=== PATIENT | male | born 1990 | race Caucasian/White ===

== ENCOUNTER → 2017-02-12 | Outpatient (CLI) | payer BC ==
[2015-11-07 19:19] VITALS: BP 152/84
--- NOTE | 2017-02-12 11:13 | CT ---
CT abdomen and pelvis with contrast Indication: Right lower quadrant pain, fever Comparison: None Technique: CT images of the abdomen and pelvis were obtained after IV and oral contrast administratio n (100 mL Omnipaque). Findings: No acute skeletal abnormality. The lung bases are clear. The liver, gallbladder, spleen, stomach, duodenum, pancreas, adrenals, and kidneys demonstrate no sig nificant abnormality. Small renal cysts are noted. No bowel thickening or dilatation is observed. The re is no obstruction of the oral contrast, which is present to the level of the rectum. The appendix appears normal, best seen on coronal images 27-29. The urinary bladder, prostate, and rectum are unre markable. No free fluid or adenopathy identified. Impression: No etiology for patient's symptoms identified. Specifically, the appendix appears normal. Reported By:
== END ==
LOC: RAD 09:31
PROVIDERS: ATTEND Internal Medicine
DX: R10.31 Right lower quadrant pain (principal)
CPT/HCPCS: 74177; A4222

== ENCOUNTER → 2017-04-11 | Outpatient (CLI) | payer BC ==
[2015-11-07 19:19] VITALS: BP 152/84
--- NOTE | 2017-04-11 10:14 | US ---
HISTORY: Quadrant pain and nausea Study: Right upper quadrant abdominal ultrasound Comparison: None Technique: Multiple images of the right upper quadrant were obtained. Findings: The liver measures 15.1 cm. No sonographic evidence of focal discrete hepatic mass is appreciated. Th e right kidney measures 9.9 x 5.7 x 4.8 cm. There is questionable minimal mild pelvicaliectasis invol ving the right kidney. Tiny echogenic foci within the right kidney may reflect artifact or perhaps st ones. Correlation with follow-up ultrasound and/or CT may be helpful as clinically indicated. No shad owing echogenic stones are noted within the gallbladder. Gallbladder wall thickness is within normal limits measuring 2.6 mm. The common bile duct is within normal limits in caliber measuring 4.2 mm. Th e pancreas was not visualized. IMPRESSION: 1. Questionable minimal to mild right-sided pelvicaliectasis as noted above. Reported By:
== END ==
LOC: RAD 08:54
PROVIDERS: ATTEND Internal Medicine
DX: R10.11 Right upper quadrant pain (principal); R11.0 Nausea; R93.421 Abnormal radiologic findings on diagnostic imaging of right kidney
CPT/HCPCS: 76705

== ENCOUNTER → 2017-04-15 | Outpatient (CLI) | payer BC ==
[2015-11-07 19:19] VITALS: BP 152/84
--- NOTE | 2017-04-15 15:46 | NM ---
HISTORY: Right lower quadrant pain in mid abdominal pain worse after eating. Nausea and vomiting. Study: Nuclear medicine HIDA scan with ejection fraction Comparison: April 11, 2017. Technique: Multiple scintigraphic images of the abdomen were obtained the intravenous administration of 5.5 mCi of technetium labeled Choletec. Following distention of the gallbladder with radiotracer, 8 oz of Ensure was administered orally. An estimated gallbladder ejection fraction was calculated based on the resulting physiologic response. Findings: Homogeneous uptake of radiotracer is seen throughout the liver. The intrabiliary ductal system is ob served normally. The common hepatic and common bile duct are unremarkable with normal biliary-bowel transit. The gallbladder is observed to fill normally. After administration of Ensure, a gallbladder ejection fraction of 36.2% (normal > 35%) is observed. IMPRESSION: 1. Normal hepatobiliary imaging scan. 2. Normal gallbladder ejection fraction of 36.2%. Reported By:
== END ==
LOC: RAD 12:27
PROVIDERS: ATTEND Internal Medicine
DX: R10.11 Right upper quadrant pain (principal); R11.0 Nausea
CPT/HCPCS: 78227; A9537